=== PATIENT | female | born 1935 | race Caucasian/White ===

== ENCOUNTER 2016-04-13 19:24 | Emergency (ER) | payer MEDICARE ==
[2016-04-13] MEDS ORDERED: ALBUTEROL/IPRATROPIUM 2.5/0.5 MG 3 ML/EACH DOSE ONE (20:08)
[2016-04-13] MEDS ORDERED: DEXAMETHASONE SOD PHOS 10 MG/1 ML VIAL ONE (20:28)
[2016-04-13 20:40] LABS: ABSOLUTE NEUTROPHIL COUNT 9.5 K/mm3 (1.8-7.7); BASO % 0.2 % (0.2-1.0); EOS % 0.4 % (0.9-2.9); HEMATOCRIT 42.6 % (37.0-47.0); IMM NEUT% 0.4 % (0-1); LYMPH # 0.9 (1.0-4.8); LYMPH % 8.1 % (15-45); MEAN CELL VOLUME 89.5 fl (81.0-99.0); MEAN CORPUSCULAR HEMOGLOBIN 29.4 pg (27.0-31.0); MEAN CORPUSCULAR HGB CONC 32.9 g/dl (33.0-37.0); MEAN PLATELET VOLUME 11.8 fl (7.4-10.4); MONO # 0.7 (0.0-0.8); MONO % 6.5 % (4-12); NEUT % 84.4 % (43-75); PLATELET COUNT 141 K/mm3 (130-400); RED CELL DISTRIBUTION WIDTH 12.5 % (11.5-14.5)
[2016-04-13 20:50] LABS: ALB/GLOB RATIO 1.3 (>1.0); ALBUMIN 4.2 gm/dL (3.5-5.7); CALCIUM 10.2 mg/dL (8.6-10.3)
--- NOTE | 2016-04-14 08:14 | RAD ---
CHEST 2 VIEWS HISTORY: Shortness of breath. Frontal and lateral chest radiographs dated 04/13/2016. COMPARISON: 02/12/2016. FINDINGS: FOCAL AIRSPACE OPACITY: No gross airspace consolidation. Coarsened bronchovascular markings and reticular opacities are noted. LUNG VOLUMES: Mild hyperinflation. PLEURAL EFFUSION: None. CARDIOMEDIASTINAL SILHOUETTE: Nonenlarged. Extensive aortic calcification. PNEUMOTHORAX: None identified. Minor apical fibrotic change. OSSEOUS STRUCTURES: No grossly destructive lesions. IMPRESSION: Hyperinflation suggesting obstructive pulmonary disease. No gross airspace consolidation. Reticular opacities suggesting fibrotic/senescent change. Evidence of aortic atherosclerotic disease.
== END 2016-04-13 22:26 | disposition home or self-care (01) ==
LOC: ED 19:24
DX: J44.1 Chronic obstructive pulmonary disease with (acute) exacerbation (principal); J45.909 Unspecified asthma, uncomplicated; I10 Essential (primary) hypertension; E11.9 Type 2 diabetes mellitus without complications; Z87.891 Personal history of nicotine dependence
CPT/HCPCS: 83880; 85025; 80053; 84484; 71020; 94640 ×2; 94664; 99284; 96374; 99283; J1100

== ENCOUNTER 2016-06-26 15:20 | Outpatient (CLI) | payer MEDICARE, MEDICAID | END 2016-06-26 15:21 | disposition home or self-care (01) | LOC: NC 15:20 | PROVIDERS: ATTEND Family Medicine | DX: J44.9 Chronic obstructive pulmonary disease, unspecified (principal); Z71.3 Dietary counseling and surveillance; R63.4 Abnormal weight loss; E11.9 Type 2 diabetes mellitus without complications; Z68.20 Body mass index [BMI] 20.0-20.9, adult; Z79.84 Long term (current) use of oral hypoglycemic drugs; Z79.899 Other long term (current) drug therapy ==